=== PATIENT | female | born 1960 | race Caucasian/White ===

== ENCOUNTER 2017-04-01 13:59 | Emergency (ER) | payer OTHER ==
[~2017-04-01] VITALS: Ht 165.1 cm; Wt 54.5 kg
[~2017-04-01 13:59] MED LIST: FLUO10CA30 PO
[2017-04-01 14:02] VITALS: BP 139/91; PULSE 66; RESP 14; O2SAT 98
--- NOTE | 2017-04-01 15:07 | DRSVH ---
PROCEDURE: CT BRAIN WITHOUT CONTRAST ([id number]) INDICATIONS: 56 year-old female status post fall. TECHNIQUE: Noncontrast 4.5 mm thick angled axial sections acquired from the foramen magnum to the vertex, with c oronal reformats. COMPARISON: None. FINDINGS: Image quality: Excellent. CSF spaces: Basal cisterns are patent. No extra-axial fluid collections. Ventricles are normal in size and shape. Brain: No midline shift. No intracranial masses or hemorrhage. Whitehead-white matter interface is norm al. Skull and face: Calvarium and visualized facial bones are intact, without suspicious lesions. Sinuses: Visualized sinuses and mastoids are clear. IMPRESSION: No acute intracranial abnormalities. Dictated by: Stephane Walters M.D. on 04/01/2017 at 15:05 Approved by: Stephane Walters M.D. on 04/01/2017 at 15:06
--- NOTE | 2017-04-01 15:11 | DRSVH ---
PROCEDURE: CT CERVICAL SPINE WITHOUT CONTRAST ([id number]) INDICATIONS: 56 year-old female with neck pain after fall. TECHNIQUE: Noncontrast 3 mm thick sections acquired from the skull base to the T5 level. Sagittal and coronal r eformats were then constructed. For radiation dose reduction, the following was used: automated exp osure control, adjustment of mA and/or kV according to patient size. COMPARISON: None. FINDINGS: Image quality: Excellent. Bones: No fractures or dislocations. Visualized superior ribs are intact. There is C6-C7 disc degen eration. Soft tissues: Prevertebral soft tissues are normal in thickness. No paravertebral hematomas. No ap ical pneumothoraces. IMPRESSION: No acute bony injuries of the cervical and upper thoracic spine from the foramen magnum t o the T5 level. Lower cervical spine disc degeneration. Dictated by: Stephane Walters M.D. on 04/01/2017 at 15:06 Approved by: Stephane Walters M.D. on 04/01/2017 at 15:09
--- NOTE | 2017-04-01 15:21 | ED.REPORT ---
HPI-Trauma Minor / Fall Date of Service Apr 01, 2017 ED Provider: Ashu Edge PA-C Marline is otherwise healthy 56-year-old female who resents the emergency department for evaluation following a fall. Patient reports she tripped over a rug and fell forward striking her forehead against a table. Complains of a laceration to her forehead. Denies severe headache, vomiting, seizures, use of blood thinners, loss of consciousness, amnesia to events, neck pain, numbness/ weakness in her limbs. She is unsure of her tetanus status. Denies comorbidities such as diabetes, HIV or immunosuppression. Nursing Notes Stated Complaint: HEAD LACERATION Chief Complaint: Head, Face, Neck Trauma Nursing Notes Reviewed: Yes Allergies: Coded Allergies: No Known Allergies (Unverified Allergy, Unknown, 07/11/14) Scheduled Fluoxetine (Prozac) 10 Mg Capsule 10 MG PO DAILY Ondansetron ODT (Ondansetron ODT) 8 Mg Tab.rapdis 8 MG PO TID General Time Seen by MD: 15:02 Chief Complaint Fall Past Medical History Past Medical History going through menopause Past Surgical History Reports: Smoking History Never Smoker Review of Systems Review of Systems Note: Negative unless stated otherwise in history of present illness Physical Exam General: Well appearing, well developed, well nourished, no acute distress. Head: 3 cm laceration on the right forehead, penetrating the dermis. There is a small opening in the galea. Minimal bleeding. No mastoid tenderness. Eyes: No scleral icterus or injection. No discharge. PERRL. Vision grossly intact. Ears: Pinna and tragus nontender with manipulation. External auditory canal patent, atraumatic and without discharge. Tympanic membrane rod, shiny and translucent without fluid, bulging, retraction or perforation. Hearing grossly intact. Nose: Symmetrical, nares patent without discharge. No frontal or maxillary sinus tenderness. Mouth/pharynx: normal dentition, mucus membranes moist. Tonsils 2+ and symmetrical, uvula midline. Pharynx noninjected, no cobblestoning or discharge. Voice clear. Neck: Negative midline spinous process tenderness. Good range of motion. Trachea midline. Respiratory: No respiratory distress, no increased work of breathing. Speaks in complete sentences. Skin: Warm and dry. Right forearm: There is a 3cm x 4 cm bruise with a small central abrasion on the proximal forearm with associated tenderness. Neurovascularly intact distal. Negative bony tenderness. Neurological: Strength and sensation grossly intact in distal extremities. Otherwise nonfocal Cranial nerves: Vision grossly intact, PERRL, EOMI. Facial motion symmetrical, sensation to light touch over forehead, maxilla and mandible present and equal B /L. Voice clear and fluent, no drooling/pooling of saliva, uvula rises midline. Psychological: alert and oriented. Speech appropriate, linear and logical. Behavior appropriate. Initial Vital Signs Vital Signs (First) Date Time Temp Pulse Resp B/P Pulse Ox O2 Delivery O2 Flow Rate FiO2 04/01/17 14:02 36.3 66 14 139/91 98 Room Air Elevated blood pressure Interpretation & Diagnostics CT Head Interpretation PROCEDURE: CT BRAIN WITHOUT CONTRAST ([id number]) INDICATIONS: 56 year-old female status post fall. IMPRESSION: No acute intracranial abnormalities. Interpretation / Wet Read by: Interpret - Radiologist CT C-Spine Interpretation PROCEDURE: CT CERVICAL SPINE WITHOUT CONTRAST ([id number]) INDICATIONS: 56 year-old female with neck pain after fall. IMPRESSION: No acute bony injuries of the cervical and upper thoracic spine from the foramen magnum to the T5 level. Lower cervical spine disc degeneration. Interpretation / Wet Read by: Interpret - Radiologist Procedures Laceration Management Laceration Management: Right forehead laceration Procedure Performed by: Allied health pract Consent / Setup / Site Prep: Consent from patient, Hand hygiene observed, Stand sterile technique Wound Length: 3 cm Local Anesthesia: Lidocaine w epi 1%, 4cc, 27g needle Wound Preparation: Shurclens, Normal saline Irrigation: Copious Foreign Body Explore / Removal: Explored for foreign body Repair Skin: Prolene (6-0) # Sutures - Skin: 6 Closure Layers: 1 Suture Technique: Simple Post-Procedure / Complications: Antibiotic oint applied, Dressing applied, No complications, Condition improved, Tolerated procedure well, Patient stable Re-Eval/Medical Decision Med Decision/Clinical Course Otherwise healthy 56-year-old female presents emergency room following a fall in which he tripped over a rug and struck her head against the edge of a table. He has a laceration on her forehead. Denies loss of consciousness, headache, vomiting, seizure, use of blood thinners, neck pain, numbness/weakness in her limbs. She admits to some nausea. Physical examination reveals a 3 cm laceration on her right forehead penetrating the dermis with a small defect in the galea. Neurological examination is normal. CT head and cervical spine are negative for acute injuries. I do suspect a mild concussion as she complains of some nausea. We discussed postconcussive syndrome , I provided emergency return precautions. I discussed the case with Sudarshan Parsons and examine the patient. She recommends closing in a single layer with interrupted sutures. Wound is cleansed and closed per the above note. Advised regarding [id number] analgesia provided ondansetron for nausea. Advised regarding wound care and suture removal. Advised regarding primary care follow-up, provided emergency return precautions. Patient verbalized understanding of, and consent to, the plan. Discharge & Departure Impression: Primary Impression: Laceration of forehead Encounter type: initial encounter Qualified Code: S01.81XA - Laceration without foreign body of other part of head, initial encounter Additional Impression: Concussion Encounter type: initial encounter Loss of consciousness presence/duration: without LOC Qualified Code: S06.0X0A - Concussion without loss of consciousness, initial encounter Disposition: Home Discharge Condition All VS Reviewed: Yes Condition: Stable Patient Instructions: Concussion (ED), Laceration (ED) Additional Instructions: Evaluation in the emergency department following a fall include interview, physical examination and CT scans which are reassuring that she did not suffer a serious head or neck injury in this fall. It is reasonable to expect you may have suffered a mild concussion however. You do have a laceration on your forehead. This appears to be a clean wound, with no damage to the joint capsule or tendons. I see no indication for antibiotics at this time. We have updated your tetanus shot We have cleaned, sutured and dressed the wound with antibiotic ointment and gauze. Please leave this dressing on and dry for the next 24 hours. After that you can remove the dressing, clean with soap and water and then reapply antibiotic ointment and gauze or Band-Aid. Please do not submerge the wound as in washing dishes, swimming or soaking in a tub until you have the sutures removed. The pain is best treated with 400 mg of ibuprofen (Advil, Motrin) every 6 hours , or 1000 mg of acetaminophen (Tylenol) every 6 hours. These drugs can be taken at the same time for more severe pain. Be vigilant for signs of infection. While a small amount of redness, tenderness and clear or pink drainage is normal, any increasing pain, redness, swelling or the appearance of pus suggests infection. More severe infection as suggested by symptoms such as fever, chills, feeling ill, racing heart. Please return to emergency Department if you notice signs of infection. Follow-up with your primary care provider or return to the emergency department in 5 days for suture removal. Referrals: OTHER,PHYSICIAN cyn [place] EDSupervising Provider for APC: Annabella Bingham MD Attending Statement Pt seen and examined with Mr Edge GL fall. Brain and c spine CT negative small lac on forhead. Mr Edge will do laceration repair discussed concussion symptoms and expected recovery Ashu Edge PA-C Apr 01, 2017 15:21 Annabella Bingham MD Apr 01, 2017 15:50
[2017-04-01] MEDS ORDERED: Ondansetron 8 mg ODT Tablet ONE (15:32)
[2017-04-01] MEDS ORDERED: Lidocaine 1%-Epi 1:100,000 20 mL Inj NERVEBLOCK ONE (15:40)
[2017-04-01] MEDS ORDERED: TdaP Vaccine 0.5 mL Inj IM ONE (17:15)
[2017-04-01] MEDS ORDERED: ONDA8TAB10 PO (17:28)
[2017-04-01 18:13] VITALS: BP 118/81; PULSE 51; RESP 14; O2SAT 96
== END 2017-04-01 18:14 | disposition home or self-care (01) ==
LOC: EDBD 13:59 → SED 13:59
DX: S06.0X0A Concussion without loss of consciousness, initial encounter (principal); S01.81XA Laceration without foreign body of other part of head, initial encounter; W01.10XA Fall on same level from slipping, tripping and stumbling with subsequent striking against unspecified object, initial encounter; Y92.219 Unspecified school as the place of occurrence of the external cause; Y93.89 Activity, other specified; Y99.8 Other external cause status; Z23 Encounter for immunization